=== PATIENT | female | born 1955 | race Caucasian/White ===

== ENCOUNTER 2019-03-08 16:06 | Observation (INO) | payer MEDICARE, BC ==
[2019-03-08 16:33] LABS: CHLORIDE,CL 104 mEq/L (98-106); SODIUM,NA 142 mEq/L (136-145)
[2019-03-08] MEDS ORDERED: Promethazine 12.5 MG in Sodium Chloride 0.9% 50 ML IV PRN (16:59)
[2019-03-08] MEDS ORDERED: Enoxaparin 30 MG/0.3 ML Syringe SUBCUT SCH (17:00)
[2019-03-08] MEDS: Acetaminophen 325 MG Tab PO PRN ×2 (17:49→23:20)
[2019-03-08] MEDS: Sodium Chloride 0.9% 1,000 ML IV SCH (17:49)
[2019-03-08] MEDS: Pantoprazole 40 MG Vial IVPUSH SCH (17:57)
[2019-03-09] MEDS: Sodium Chloride 0.9% 1,000 ML IV SCH ×2 (02:17→10:29)
[2019-03-09] MEDS: Pantoprazole 40 MG Vial IVPUSH SCH (05:12)
[2019-03-09] MEDS: Acetaminophen 325 MG Tab PO PRN ×2 (05:12→12:03)
[2019-03-09 07:37] LABS: CHLORIDE,CL 109 mEq/L (98-106); SODIUM,NA 143 mEq/L (136-145)
[2019-03-09] MEDS ORDERED: Ibuprofen 200 MG Tab PO ONE (13:43)
--- NOTE | 2019-03-09 22:00 | PCM.DCSUM1 ---
Discharge Summary - Hospital Course Free Text/Narrative:: Patient presented to clinic to see Frannie Rowe for headache, back pain, nausea and vomiting. States started getting the headache on Friday, awoke with vomiting on Friday and was unable to consume food or fluids due to vomiting. Had fever. Generalized malaise. Lab work done, essentially all negative. Specific gravity 1.020. Admitted for IV fluids, Zofran to control nausea and vomiting. Diagnosis: Stroke: No Modified Edgar Scale: No Symptoms at All Modified Iron Scale Score: 0 - Discharge Data Discharge Date: 03/09/19 Discharge Disposition: Home, Self-Care 01 Condition: Good - Patient Summary/Data Complications: none Hospital Course: Patient is feeling better in regards to GI complaints. No longer vomiting. Did tolerate breakfast today and dinner today. Has struggled with headache, did feel was tension-type. Given Norflex IM which did help short term. Given tylenol and ibuprofen. Fever of 101 last night, afebrile this am. Labs stable , wBC 6.8, CRP negative. Potassium mildly low at 3.1. Will discharge home today. Phenergan gel for nausea/vomiting. Flexeril for tension headaches. Follow up with Frannie Rowe in one week. - Patient Instructions Diet: Usual Diet as Tolerated Activity: As Tolerated - Discharge Plan *PRESCRIPTION DRUG MONITORING PROGRAM REVIEWED*: No *COPY OF PRESCRIPTION DRUG MONITORING REPORT IN PATIENT MARIA C: No Home Medications: Home Meds Pantoprazole Sodium 40 mg PO DAILY 03/08/19 [History] Promethazine [Phenergan] 5 ml TOP Q4H PRN 03/08/19 [History] Oxygen Therapy Mode: Nasal Cannula Referrals: Frannie Rowe PA-C [Primary Care Provider] - (Follow up with Frannie Rowe in 7 days ) - Discharge Summary/Plan Comment DC Time >30 min.: No - General Info Date of Service: 03/09/19 Admission Dx/Problem (Free Text: Vomiting Functional Status: Reports: Tolerating Diet, Ambulating - Review of Systems General: Reports: Fatigue, Malaise. Denies: Weakness HEENT: Reports: Headaches. Denies: Sore Throat, Rhinitis Pulmonary: Reports: No Symptoms Cardiovascular: Reports: No Symptoms Gastrointestinal: Denies: Abdominal Pain, Nausea, Vomiting Genitourinary: Reports: No Symptoms Musculoskeletal: Reports: No Symptoms Skin: Reports: No Symptoms Neurological: Reports: Headache - Patient Data Vitals - Most Recent: Last Vital Signs Temp 98.7 F 03/09/19 12:00 Pulse 57 L 03/09/19 12:00 Resp 20 03/09/19 12:00 BP 129/63 03/09/19 12:00 Pulse Ox 100 03/09/19 12:00 Weight - Most Recent: 197 lb 3.2 oz I&O - Last 24 hours: Intake & Output 03/09/19 03/09/19 03/09/19 06:59 14:59 22:59 Intake Total 1200 1000 Output Total 500 Balance 700 1000 Lab Results - Last 24 hrs: Laboratory Results - last 24 hr 03/09/19 03/09/19 Range/Units 07:00 07:00 WBC 6.8 (5.0-10.0) 10^3/uL RBC 4.14 (4.00-5.50) 10^6/uL Hgb 12.4 (12.0-16.0) g/dL Hct 38.5 (37.0-47.0) % MCV 93.0 (82.0-94.0) fL MCH 30.0 (27.0-32.0) pg MCHC 32.2 L (33.0-38.0) g/dL RDW Coeff of Tucker 13.9 (11.0-15.0) % Plt Count 169 (150-400) 10^3/uL Neut % (Auto) 61.8 (35-85) % Lymph % (Auto) 25.4 (10-55) % [place] % (Auto) 12.3 (0-16) % Eos % (Auto) 0.1 (0-5) % Baso % (Auto) 0.4 (0-3) % Neut # (Auto) 4.17 (1.80-7.00) 10^3/uL Lymph # (Auto) 1.72 (1.00-4.80) 10^3/uL [place] # (Auto) 0.83 H (0.00-0.80) 10^3/uL Eos # (Auto) 0.01 (0.00-0.45) 10^3/uL Baso # (Auto) 0.03 10^3/uL Sodium 143 (136-145) mEq/L Potassium 3.1 L (3.5-5.0) mEq/L Chloride 109 H (98-106) mEq/L Carbon Dioxide 26 (21-32) mmol/L BUN 11 (7-18) mg/dL Creatinine 0.7 (0.6-1.0) mg/dL Est Cr Clr Drug Dosing 87.80 mL/min Estimated GFR (MDRD) > 60 (>=60) mL/min Glucose 106 H (75-99) mg/dL Calcium 8.5 (8.4-10.1) mg/dL C-Reactive Protein < 0.2 L (0.2-0.8) mg/dL MELLISSA Results - Last 24 hrs: Microbiology 03/08/19 16:15 Urine Culture - Preliminary Urine, Voided Med Orders - Current: Current Medications Discontinued Medications Acetaminophen (Tylenol) 650 mg PO Q4H PRN PRN Reason: Pain (Mild 1-3)/fever Last Admin: 03/09/19 12:03 Dose: 650 mg Enoxaparin Sodium (Lovenox) 30 mg SUBCUT Q24H [facility] Last Admin: 03/08/19 17:56 Dose: 30 mg Promethazine HCl 12.5 mg/ (Sodium Chloride) 50.5 mls @ 100 mls/hr IV Q6H PRN PRN Reason: Nausea/Vomiting Last Admin: 03/08/19 17:57 Dose: 100 mls/hr Sodium Chloride (Normal Saline) 1,000 mls @ 125 mls/hr IV ASDIRECTED [facility] Last Admin: 03/09/19 10:29 Dose: 125 mls/hr Ibuprofen (Motrin) 600 mg PO ONETIME ONE Stop: 03/09/19 13:44 Last Admin: 03/09/19 14:01 Dose: 600 mg Orphenadrine Citrate (Norflex) 60 mg IM NOW ONE Stop: 03/09/19 09:01 Last Admin: 03/09/19 10:15 Dose: 60 mg Pantoprazole Sodium (Protonix Iv) 40 mg IVPUSH Q12H [facility] Last Admin: 03/09/19 05:12 Dose: 40 mg - Exam General: Reports: Alert, Oriented HEENT: Reports: Mucous Membr. Moist/[place] Neck: Reports: Supple Lungs: Reports: Clear to Auscultation, Normal Respiratory Effort Cardiovascular: Reports: Regular Rate, Regular Rhythm GI/Abdominal Exam: Normal Bowel Sounds, Soft, Non-Tender Extremities: Normal Inspection, No Pedal Edema Skin: Reports: Warm, Dry Neurological: Reports: No New Focal Deficit
== END 2019-03-09 15:33 | disposition home or self-care (01) ==
LOC: CC.FCMC 16:06 → CC.MS 16:06 → UNDOADMOB 16:54 → CC.MS 16:59
PROVIDERS: ADMIT Physician Assistant Medical; ATTEND Family Medicine
DX: G44.209 Tension-type headache, unspecified, not intractable (principal); G43.A1 Cyclical vomiting, in migraine, intractable; E86.0 Dehydration; M54.9 Dorsalgia, unspecified; Z88.0 Allergy status to penicillin; Z88.2 Allergy status to sulfonamides; Z88.5 Allergy status to narcotic agent; Z88.8 Allergy status to other drugs, medicaments and biological substances; Z79.899 Other long term (current) drug therapy
CPT/HCPCS: 36415; 74019; 80048; 80053; 81001; 82150; 85025; 86140; 87086; 96361; 96365; 96372; 96375; 96376; A9270-GY; C9113; G0378; J1650; J2360; J2550; J7030; J7050

== ENCOUNTER 2019-12-19 07:18 | Emergency (ER) | payer MEDICARE, BC ==
[2019-12-19] MEDS ORDERED: Nitroglycerin 2% Oint 1 GM UD Packet TOP ONE (07:40)
--- NOTE | 2019-12-19 07:48 | EDM.PDOC ---
ED HPI GENERAL MEDICAL PROBLEM - General Chief Complaint: Chest Pain Stated Complaint: CP Time Seen by Provider: 12/19/19 07:34 Source of Information: Reports: Patient, EMS, Family History Limitations: Reports: No Limitations - History of Present Illness INITIAL COMMENTS - FREE TEXT/NARRATIVE: Patient to the emergency department by EMS where she advises that she woke up about 6:00 this morning with anterior chest pain going to her left arm. The patient also advises she has had some shortness of breath and nausea she has had no vomiting the patient denies any ear, nose, throat symptoms denies any unusual neck, back pain or stiffness she denies any abdominal pain again she has had nausea there is been no vomiting diarrhea no constipation she denies any fever chills she denies any rash she denies any cough. The patient denies any history of diabetes, hypertension, coronary artery disease. The patient has never had a stress test or heart catheterization. The patient denies any pain redness or swelling in her calfs or swelling in her lower extremities. She denies any dyspnea on exertion Onset: Today Duration: Hour(s): Location: Reports: Chest Quality: Reports: Pressure Severity: Moderate Improves with: Reports: None Worsens with: Reports: None Associated Symptoms: Reports: Chest Pain, Nausea/Vomiting, Shortness of Breath. Denies: Cough, Diaphoresis, Fever/Chills, Headaches, Rash, Syncope Treatments NURSERY NURSE: Reports: Aspirin Other Treatments NURSERY NURSE: The patient was given aspirin 324 mg chewed prior to arrival. The patient Chest Pain Score (Numeric/FACES): 8 - Related Data Allergies Allergy/AdvReac Type Severity Reaction Status Date / Time codeine Allergy Vomiting Verified 12/19/19 07:33 cyclobenzaprine Allergy Vomiting Verified 12/19/19 07:33 ketorolac [From Toradol] Allergy Nausea Verified 12/19/19 07:33 morphine Allergy Nausea Verified 12/19/19 07:33 ondansetron [From Zofran] Allergy Nausea Verified 12/19/19 07:33 Penicillins Allergy Hives Verified 12/19/19 07:33 scopolamine Allergy Nausea Verified 12/19/19 07:33 Sulfa (Sulfonamide Allergy Hives Verified 12/19/19 07:33 Antibiotics) Home Meds: Home Meds Pantoprazole Sodium 40 mg PO DAILY 03/08/19 [History] Promethazine [Phenergan] 5 ml TOP Q4H PRN 03/08/19 [History] Past Medical History Other Genitourinary History: bladder lift surgery 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: Endometriosis Musculoskeletal History: Reports: Osteoarthritis Neurological History: Reports: Migraines - Past Surgical History HEENT Surgical History: Reports: Adenoidectomy, Tonsillectomy GI Surgical History: Reports: Cholecystectomy Female Surgical History: Reports: Hysterectomy Other Musculoskeletal Surgeries/Procedures:: back injections, thumb joint surgery Social & Family History - Tobacco Use Smoking Status *Q: Never Smoker Second Hand Smoke Exposure: No - Caffeine Use Caffeine Use: Reports: None - Recreational Drug Use Recreational Drug Use: No ED ROS GENERAL - Review of Systems Review Of Systems: See Below Constitutional: Reports: No Symptoms. Denies: Fever, Chills, Weakness HEENT: Reports: No Symptoms Respiratory: Reports: Shortness of Breath Cardiovascular: Reports: Chest Pain Endocrine: Reports: No Symptoms GI/Abdominal: Reports: Nausea. Denies: Abdominal Pain, Melena, Vomiting : Reports: No Symptoms Musculoskeletal: Reports: No Symptoms. Denies: Neck Pain, Back Pain Skin: Reports: No Symptoms Neurological: Reports: No Symptoms Psychiatric: Reports: No Symptoms ED EXAM, GENERAL - Physical Exam Exam: See Below Exam Limited By: No Limitations General Appearance: Alert, WD/WN, No Apparent Distress Ears: Normal External Exam Nose: Normal Inspection Throat/Mouth: Normal Inspection, Normal Voice, No Airway Compromise Head: Atraumatic, Normocephalic Neck: Normal Inspection, Supple, Non-Tender, Full Range of Motion Respiratory/Chest: No Respiratory Distress, Lungs Clear, Normal Breath Sounds, Chest Non-Tender Cardiovascular: Normal Peripheral Pulses, Regular Rate, Rhythm, No Murmur Peripheral Pulses: 2+: Radial (L), Radial (R) GI/Abdominal: Soft, Non-Tender Back Exam: Normal Inspection, Full Range of Motion Extremities: Normal Inspection, Normal Range of Motion, Non-Tender, No Pedal Edema, Normal Capillary Refill Neurological: Alert, Oriented, Normal Cognition, No Motor/Sensory Deficits Psychiatric: Normal Affect, Normal Mood Skin Exam: Warm, Dry, Intact, Normal Color EKG INTERPRETATION EKG Date: 12/19/19 Time: 07:28 Rhythm: NSR [place]: Normal P-Wave: Present QRS: Normal ST-T: Normal QT: Normal EKG Interpretation Comments: Twelve-lead EKG shows a underlying sinus rhythm with a ventricular rate of 79 there is some nonspecific ST changes as there is T wave inversion in aVL. There is good R wave progression. There is no acute injury or ischemia noted. Course - Vital Signs Text/Narrative:: 0747 The patient was evaluated in the emergency department, the patient was given aspirin prior to arrival. The patient was given nitroglycerin 1 tablet sublingual prior to arrival as well. In the emergency department the patient has been given nitroglycerin paste 1/2 inch. The patient has had blood work ordered as well as a chest x-ray. The twelve-lead EKG shows an underlying sinus rhythm with a ventricular rate of 79 there is no acute injury or ischemia however there is T wave inversion in aVL. All the orders are in process and will be reviewed and a disposition will be made. The patient denies any history of coronary artery disease denies any comorbid conditions. 0804 the patient's CBC and general chemistries are essentially negative the troponin is elevated. The chest x-ray shows some increased markings in the right lower lobe, pneumonia cannot be entirely excluded however, doubtful. The patient was started on heparin drip and was given a heparin bolus per acute coronary syndrome protocol. The patient will be transferred to [facility] in [place], I spoke with Dr. Toney the dispute specialist on-call at 0832, she advised she would except the patient in transfer. The patient will be admitted to the hospitalist Dr. Borjas. The patient was advised of this and she agrees with the transfer the risk and benefits was explained to the patient including the risk of motor vehicle accident, worsening condition, and . The benefits of transfer is further evaluation of treatment by a dispute specialist not available at [facility]. See the nursing note for details of transfer. 0835 a second twelve-lead EKG is been obtained and shows sinus rhythm with a ventricular rate of 66 there is no acute injury or ischemia noted. Last Recorded V/S: Last Vital Signs Temp 36.8 C 12/19/19 07:36 Pulse 94 12/19/19 07:36 Resp 20 12/19/19 07:36 BP 152/97 H 12/19/19 09:14 Pulse Ox 98 12/19/19 07:36 - Orders/Labs/Meds Orders: Active Orders 24 hr Category Date Time Status EKG Documentation Completion [RC] STAT Care 12/19/19 07:19 Active Chest 2V [CR] Stat Exams 12/19/19 07:19 Taken Heparin Sodium/D5W [Heparin 25,000 Units in D5W 500 ML] Med 12/19/19 08:15 Active 25,000 units in 500 ml IV TITRATE Medication Orders Heparin Sodium/Dextrose (Heparin 25,000 Units In D5w 500 Ml) 25,000 units in 500 mls @ 20 mls/hr IV TITRATE YUE; Protocol Last Admin: 12/19/19 08:22 Dose: 20 mls/hr Labs: Laboratory Tests 12/19/19 12/19/19 12/19/19 Range/Units 07:40 07:40 07:40 WBC 7.8 (5.0-10.0) 10^3/uL RBC 4.30 (4.00-5.50) 10^6/uL Hgb 12.6 (12.0-16.0) g/dL Hct 39.2 (37.0-47.0) % MCV 91.2 (82.0-94.0) fL MCH 29.3 (27.0-32.0) pg MCHC 32.1 L (33.0-38.0) g/dL RDW Coeff of Tucker 14.1 (11.0-15.0) % Plt Count 223 (150-400) 10^3/uL Neut % (Auto) 63.7 (35-85) % Lymph % (Auto) 24.9 (10-55) % [place] % (Auto) 8.7 (0-16) % Eos % (Auto) 2.3 (0-5) % Baso % (Auto) 0.4 (0-3) % Neut # (Auto) 4.98 (1.80-7.00) 10^3/uL Lymph # (Auto) 1.95 (1.00-4.80) 10^3/uL [place] # (Auto) 0.68 (0.00-0.80) 10^3/uL Eos # (Auto) 0.18 (0.00-0.45) 10^3/uL Baso # (Auto) 0.03 10^3/uL PT 9.5 L (9.7-12.3) SEC INR 0.92 (0.92-1.18) APTT 27.3 (23.2-32.3) SEC Sodium 144 (136-145) mEq/L Potassium 3.9 (3.5-5.0) mEq/L Chloride 106 (98-106) mEq/L Carbon Dioxide 28 (21-32) mmol/L BUN 17 (7-18) mg/dL Creatinine 0.7 (0.6-1.0) mg/dL Est Cr Clr Drug Dosing 83.73 mL/min Estimated GFR (MDRD) > 60 (>=60) mL/min Glucose 101 H (75-99) mg/dL Calcium 8.9 (8.4-10.1) mg/dL Total Bilirubin 0.4 (0.0-1.0) mg/dL AST 10 L (15-37) U/L ALT 19 (12-78) U/L Alkaline Phosphatase 81 (46-116) U/L Lactate Dehydrogenase 184 (100-190) U/L Creatine Kinase 61 (21-215) U/L Troponin I 0.104 H (0.00-0.06) ng/mL Total Protein 6.4 (6.4-8.2) g/dL Albumin 3.3 L (3.4-5.0) g/dL Lipase 106 (73-393) U/L Meds: Medications Generic Name Dose Route Start Last Admin Trade Name Freq PRN Reason Stop Dose Admin Heparin Sodium/Dextrose 25,000 units in 500 mls @ 20 mls/hr 12/19/19 08:15 08:22 Heparin 25,000 Units In D5w 500 Ml IV 20 mls/hr TITRATE YUE Administration Protocol Discontinued Medications Generic Name Dose Route Start Last Admin Trade Name Freq PRN Reason Stop Dose Admin Heparin Sodium (Porcine) 4,000 units 12/19/19 08:05 12/19/19 08:30 Heparin Sodium IVPUSH 12/19/19 08:06 4,000 units .BOLUS ONE Administration Nitroglycerin 1 gm 12/19/19 07:40 12/19/19 07:47 Nitro-Bid 2% TOP 12/19/19 07:41 1 gm ONETIME ONE Administration Departure - Departure Time of Disposition: 09:31 Disposition: DC/Tfer to Acute Hospital 02 Reason for Transfer *Q: Primary PCI Indicated Condition: Good Clinical Impression: Acute coronary syndrome Referrals: Frannie Rowe PA-C [Primary Care Provider] - Forms: ED Department Discharge Sepsis Event Note - Evaluation Sepsis Screening Result: No Definite Risk - Focused Exam Vital Signs: Vital Signs Temp Pulse Resp BP Pulse Ox 12/19/19 09:14 152/97 H 12/19/19 09:00 150/82 H 12/19/19 08:45 139/69 12/19/19 08:30 154/85 H 12/19/19 08:15 128/77 12/19/19 07:59 146/79 H 12/19/19 07:43 152/76 H 12/19/19 07:36 36.8 C 94 20 181/82 H 98 Date Exam was Performed: 12/19/19 Time Exam was Performed: 09:31 - Problem List & Annotations (1) Acute coronary syndrome SNOMED Code(s): 027986389 Code(s): I24.9 - ACUTE ISCHEMIC HEART DISEASE, UNSPECIFIED Status: Acute Priority: High Current Visit: Yes - Problem List Review Problem List Initiated/Reviewed/Updated: Yes - My Orders Last 24 Hours: My Active Orders 12/19/19 07:19 EKG Documentation Completion [RC] STAT Chest 2V [CR] Stat 12/19/19 08:15 Heparin Sodium/D5W [Heparin 25,000 Units in D5W 500 ML] 25,000 units in 500 ml IV TITRATE - Assessment/Plan Last 24 Hours: My Active Orders 12/19/19 07:19 EKG Documentation Completion [RC] STAT Chest 2V [CR] Stat 12/19/19 08:15 Heparin Sodium/D5W [Heparin 25,000 Units in D5W 500 ML] 25,000 units in 500 ml IV TITRATE Plan: See course for details
[2019-12-19 08:00] LABS: CHLORIDE,CL 106 mEq/L (98-106); SODIUM,NA 144 mEq/L (136-145)
[2019-12-19] MEDS ORDERED: Heparin Sodium 10,000 Units/1 ML MDV IVPUSH ONE (08:05)
[2019-12-19] MEDS ORDERED: Heparin Sodium/D5W 25,000 UNITS/500 ML BAG IV SCH (08:15)
[2019-12-19] MEDS ORDERED: Nitroglycerin/D5W 25 MG/250 ML BOTTLE IV SCH (09:45)
== END 2019-12-19 10:24 ==
LOC: CC.ED 07:18
DX: I24.9 Acute ischemic heart disease, unspecified (principal); Z88.5 Allergy status to narcotic agent; Z88.0 Allergy status to penicillin; Z88.2 Allergy status to sulfonamides; Z88.8 Allergy status to other drugs, medicaments and biological substances; Z79.899 Other long term (current) drug therapy; Z90.49 Acquired absence of other specified parts of digestive tract; Z90.710 Acquired absence of both cervix and uterus
CPT/HCPCS: 36415; 71046; 80053; 82550; 83615; 83690; 84484; 85025; 85610; 85730; 93005; 93010; 96365; 96366; 96375; 99284; 99285-25; A9270-GY; J1644

== ENCOUNTER 2025-07-29 09:06 | Day surgery (SDC) | payer MEDICARE, BC ==
[~2025-07-29 09:06] MED LIST: Lidocaine 1% with EPINEPHrine 1:100,000 20 ML MDV ONE
[2025-07-29] MEDS: Lactated Ringers 1,000 ML IV SCH (09:29)
[2025-07-29] MEDS ORDERED: Ketamine 200 MG/20 ML MDV ONE (10:05)
[2025-07-29] MEDS ORDERED: Midazolam 1 MG/ML 2 ML SDV ONE (10:05)
[2025-07-29] MEDS ORDERED: fentaNYL 50 MCG/ML SDV ONE (10:05)
[2025-07-29] MEDS: Lidocaine 1% with EPINEPHrine 1:100,000 20 ML MDV INJECT ONE (10:09)
== END 2025-07-29 11:25 | disposition home or self-care (01) ==
LOC: CC.SDS 09:06
PROVIDERS: ATTEND Family Medicine
DX: D17.21 Benign lipomatous neoplasm of skin and subcutaneous tissue of right arm (principal); I10 Essential (primary) hypertension; Z88.0 Allergy status to penicillin; Z88.2 Allergy status to sulfonamides; Z88.5 Allergy status to narcotic agent; Z79.82 Long term (current) use of aspirin; Z79.899 Other long term (current) drug therapy
CPT/HCPCS: 00400; 23071; 88304; 99100; J2004; J2250; J3010; J3490; J7120